=== PATIENT | female | born 1940 | race Caucasian/White ===

== ENCOUNTER 2023-06-27 16:41 | Emergency (ER) | payer MEDICARE, OTHER, SELFPAY ==
[2023-06-27 16:43] VITALS: BP 131/72
[2023-06-27 16:56] VITALS: BP 136/79
[2023-06-27 17:00] VITALS: BP 131/77
[2023-06-27] MEDS: NSS 1000 IV ×2 (17:53→20:13)
[2023-06-27 18:00] VITALS: BP 132/66
--- NOTE | 2023-06-27 18:05 | ED.GENMED ---
History of Present Illness
General
Chief Complaint: Dehydration Symptoms
Source: patient
Exam Limitations: none
Time Seen by Provider: 06/27/23 17:39
Travel History
Have you had any contact with someone who has COVID-19?: No
Do you have any symptoms of coronavirus? Fever > 100 degrees, chills, cough, shortness of breath, sore throat, loss of taste or smell, muscle aches, or headache?: No
History of Present Illness
History of Present Illness:
82-year-old healthy female presents complaining of fatigue, loose stool. This is been getting worse over the past 10 days. She is typically healthy does not take any medicine and takes care of her . She notes decreased appetite. She
denies any significant abdominal pain or fever. No chest pain or shortness of breath. No other complaints at this time
Phy Exam
Physical Exam
Physical Exam:
General: Well-appearing female no acute respiratory distress
HEENT: Normocephalic mucosa dry neck is supple
Heart: Tachycardic but regular
Lungs: Clear to auscultation bilaterally no wheezes
Abdomen: Soft nontender nondistended
Extremities: No cyanosis or edema.
Course
Orders/Labs/Results
Orders:
Orders
06/27/23 17:53
Norovirus by PCR Urgent
[facility] Source: Feces/Stool
Specimen Description:
STOOL [C difficile Antigen & Toxins] Urgent
[facility] Source: Feces/Stool
Specimen Description:
Stool Culture Urgent
[facility] Source: Feces/Stool
Specimen Description:
0.9% Sodium Chloride 1000 ml [Nss] 1,000 ml IV BOLUS
0.9% Sodium Chloride 1000 ml [Nss] 1,000 ml IV BOLUS
06/27/23 17:54
CT Abd/pelvis W Iv Cont Urgent
Comment:
Reason For Exam: nausea, diarrhea
CMP [Comprehensive Metabolic Panel] Urgent
Complete Blood Count/No Diff Urgent
Lipase Urgent
06/27/23 20:10
0.9% Sodium Chloride 1000 ml [Nss] 1,000 ml IV BOLUS
06/27/23 21:28
Urinalysis Reflex To Culture Urgent
Date Specimen was Collected: 06/27/23
Time Specimen was Collected: 21:23
Urine Microscopic Reflex Cult Urgent
Urine Culture Urgent
[facility] Source: U
Specimen Description:
Date Specimen was Collected: 06/27/23
Time Specimen was Collected: 21:23
06/27/23 22:18
Cefdinir [Omnicef] 300 mg PO NOW STA
Abnormal Lab Results
06/27/23 06/27/23
17:54 21:28
WBC 11.1 H 10^3/uL
(4.8-10.8)
RBC 4.05 L 10^6/uL
(4.20-5.40)
Hct 35.8 L %
(37.0-47.0)
MCH 31.9 H pg
(27.0-31.0)
Sodium 128 L mmol/L
(135-145)
Chloride 95 L mmol/L
(98-107)
BUN 20 H mg/dl
(7-17)
Glucose 127 H mg/dl
(70-99)
Calcium 8.3 L mg/dl
(8.4-10.2)
AST 81 H U/L
(14-36)
ALT 84 H U/L
(0-35)
Total Protein 6.0 L g/dl
(6.3-8.2)
Albumin 3.1 L g/dl
(3.5-5.0)
Urine Ketones Trace A
(Negative)
Ur Occult Blood Reflex 2+ A
(Negative)
Leukocyte Esterase Rfl 2+ A
(Negative)
Urine RBC 3-6 A /HPF
(0-2)
Urine WBC (Reflex) 11-15 A /HPF
(0-5)
Urine Bacteria (Reflex) Moderate A
(Negative)
06/27/23 17:54
06/27/23 17:54
Vital Signs
Initial and Last Documented VS:
Initial Vital Signs
Temp Pulse Resp BP Pulse Ox
99.4 F 107 18 131/72 94
06/27/23 16:43 06/27/23 16:43 06/27/23 16:43 06/27/23 16:43 06/27/23 16:43
Last Documented Vital Signs
Temp Pulse Resp BP Pulse Ox
99.4 F 92 17 132/66 96
06/27/23 16:43 06/27/23 18:45 06/27/23 18:45 06/27/23 18:00 06/27/23 17:45
MDM/Problems Addressed
Differential Diagnosis Includes:
Generalized weakness sense of dehydration with ongoing loose stools. Patient is taking care of her as well. Will check labs hydrate order stool cultures if she gives a sample and urinalysis
*Critical Care Note
Total Time (30-74mins, 75-104mins- exclusive of procedures): Not Applicable
Update Note
Update Note:
Patient reevaluated multiple times. She was hydrated given 2 bags of fluid. UA consistent with UTI. CT shows nonspecific findings possible suggestive of enteritis. Labs reviewed. Patient expresses her desire to go home. Will cover for UTI with
Omnicef. Recommended brat diet and plenty of fluids otherwise. Return precautions were given
ED Attending Note
-
Portions of this chart may have been created with voice recognition software.� Occasional wrong word or��sound alike� substitutions may have occurred due to the inherent limitations of voice recognition software.
Discharge Plan
Departure
Patient Disposition: Home (Routine Discharge)
Date of Disposition: 06/27/23
Time of Disposition: 22:24
Patient with high blood pressure during this ER visit?: No
Discharge Problem:
Acute UTI, Acute dehydration
Instructions: Diarrhea in adolescents and adults
Prescriptions:
New
cefdinir 300 mg capsule
300 mg PO BID Qty: 14 0RF
Referrals:
Yaneth Lee MD [Family Provider] -
Activity Restrictions/Additional Instructions:
Continue with plenty of fluids and a bland diet. Use antibiotics as directed. Return for worsening symptoms otherwise follow-up with family doctor
Interventions
Interventions:
*Risk Screen - Suicide Last Done: 06/27/23 17:55
*General Assessment Last Done: 06/27/23 17:55
*Neglect/Abuse Screening Last Done: 06/27/23 17:55
*ED COVID-19 Vaccine History Last Done: 06/27/23 17:55
SP-Ifrztj-Gkiubveerk Assessment Last Done: 06/27/23 18:55
ED- Cardiac Assessment Last Done: 06/27/23 18:55
ED- Neurological Assessment Last Done: 06/27/23 18:55
ED- Pulmonary Assessment Last Done: 06/27/23 18:56
[2023-06-27 18:16] LABS: Hematocrit 35.8 % (37.0-47.0); Hemoglobin 12.9 g/dL (12.0-16.0); Mean Corpuscular Hgb 31.9 pg (27.0-31.0); Mean Corpuscular Volume 88.4 fL (81.0-99.0); Mean Platelet Volume 9.8 fL (7.4-10.4); Platelet Count 201 10^3/uL (130-400); Red Blood Cell Count 4.05 10^6/uL (4.20-5.40); Red Cell Dist. Width 12.5 % (11.5-14.5); White Blood Cell Count 11.1 10^3/uL (4.8-10.8)
[2023-06-27 18:20] LABS: ALT (SGPT) 84 U/L (0-35); AST (SGOT) 81 U/L (14-36); Albumin 3.1 g/dl (3.5-5.0); Alkaline Phosphatase 115 U/L (38-126); Blood Urea Nitrogen 20 mg/dl (7-17); Calcium 8.3 mg/dl (8.4-10.2); Carbon Dioxide 27 mmol/L (22-30); Chloride 95 mmol/L (98-107); Glucose 127 mg/dl (70-99); Lipase 107 U/L (23-300); Potassium 3.7 mmol/L (3.5-5.1); Sodium 128 mmol/L (135-145); eGFR 56.95
[2023-06-27 21:39] LABS: Urine Albumin Trace (Neg - Trace); Urine Bilirubin Negative (Negative); Urine Character Clear (Clear); Urine Color Yellow; Urine Glucose Negative (Negative); Urine Ketone Trace (Negative); Urine Leukocyte 2+ (Negative); Urine Nitrite Negative (Negative); Urine Occult Blood 2+ (Negative); Urine Urobilinogen Negative (Neg - 1+)
[2023-06-27 21:50] LABS: Urine Bacteria Moderate (Negative)
[2023-06-27] MEDS: OMNICEF 300 MG PO (22:31)
== END 2023-06-27 23:13 | disposition home or self-care (01) ==
LOC: EMR 16:41
PROVIDERS: Physician Assistant; EMERGENCY PHYSICIAN Emergency Medicine; FAMILY PHYSICIAN Student in an Organized Health Care Education/Training Program
DX: E86.0 Dehydration (principal); N39.0 Urinary tract infection, site not specified
CPT/HCPCS: 99284; 96360; 96361; 74177; 80053; 81003; 81015; 83690; 85027; 87086; Q9967

== ENCOUNTER → 2023-07-10 16:16 | Outpatient (REF) | payer MEDICARE, OTHER, SELFPAY | LOC: RAD 16:16 | PROVIDERS: ATTENDING PHYSICIAN Student in an Organized Health Care Education/Training Program | DX: R09.89 Other specified symptoms and signs involving the circulatory and respiratory systems (principal) | CPT/HCPCS: 71046 ==

== ENCOUNTER → 2024-12-30 08:57 | Outpatient (REF) | payer MEDICARE, OTHER, SELFPAY ==
[2024-12-30 09:37] LABS: Hematocrit 45.7 % (37.0-47.0); Hemoglobin 15.2 g/dL (12.0-16.0); Mean Corp Hgb Conc. 33.3 g/dL (33.0-37.0); Mean Corpuscular Volume 93.8 fL (81.0-99.0); Nucleated Red Blood Cells % 0 %; Platelet Count 222 10^3/uL (130-400); Red Cell Dist. Width 12.7 % (11.5-14.5)
[2024-12-30 10:53] LABS: Glycohemoglobin (HgbA1c) 5.8 % (4.0-5.6)
[2024-12-30 11:04] LABS: ALT (SGPT) 15 U/L (0-35); AST (SGOT) 21 U/L (14-36); Albumin 4.6 g/dl (3.5-5.0); Alkaline Phosphatase 88 U/L (38-126); Blood Urea Nitrogen 16 mg/dl (7-17); Calcium 9.8 mg/dl (8.4-10.2); Carbon Dioxide 25 mmol/L (22-30); Chloride 108 mmol/L (98-107); Glucose 112 mg/dl (70-99); Potassium 5.1 mmol/L (3.5-5.1); Sodium 140 mmol/L (135-145); Total Protein 7.2 g/dl (6.3-8.2); eGFR > 60.00
== END ==
LOC: REG 08:57
PROVIDERS: ATTENDING PHYSICIAN Student in an Organized Health Care Education/Training Program
DX: R73.09 Other abnormal glucose (principal); E87.5 Hyperkalemia; R79.89 Other specified abnormal findings of blood chemistry; Z00.00 Encounter for general adult medical examination without abnormal findings; E03.8 Other specified hypothyroidism; I10 Essential (primary) hypertension
CPT/HCPCS: 36415; 80053; 83036; 84100; 84443; 85025